=== PATIENT | male | born 2000 | race Caucasian/White ===

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

== ENCOUNTER 2021-04-30 22:39 | Emergency (ER) | payer MEDICAID ==
--- NOTE | 2021-04-30 23:35 | ED Physician Documentation ---
PD HPI UPPER EXT INJURY - Stated complaint Stated Complaint: R ELBOW PX - Chief complaint Chief Complaint: Trauma Ext - History obtained from History obtained from: Patient - History of Present Illness Location: Right, Elbow Type of injury: Fall (skateboarding and fell to right elbow, with pain on ROM, feels best with it bent at 90 degrees. No numbness in fingers.) Where injury occurred: Street Timing - onset: Today Timing - details: Abrupt onset, Still present Worsened by: Moving Associated symptoms: Swelling (of the elbow). No: Weakness, Numbness Similar symptoms before: Has not had sx before Review of Systems GI: denies: Abdominal Pain Skin: denies: Abrasion (s), Laceration (s) Musculoskeletal: denies: Neck pain Neurologic: denies: Headache PD PAST MEDICAL HISTORY - Past Medical History Past Medical History: No - Past Surgical History Past Surgical History: No - Present Medications Home Medications: Ambulatory Orders Medication Instructions Recorded Confirmed Ibuprofen [Motrin] 600 mg PO TID PRN #25 tab 05/01/21 - Allergies Allergies/Adverse Reactions: Allergies Allergy/AdvReac Type Severity Reaction Status Date / Time No Known Drug Allergies Allergy Verified 04/30/21 22:58 - Social History Does the pt smoke?: Yes Smoking Status: Current every day smoker Does the pt drink ETOH?: No Does the pt have substance abuse?: No - Immunizations Immunizations are current?: Yes - POLST Patient has POLST: No PD ED PE NORMAL - Vitals Vital signs reviewed: Yes - General General: Alert and oriented X 3, Well developed/nourished, Other (appears in discomfort with any ROM of the elbow. Not able to fully extend. Pain with supination/pronation. Mild effusion. ) - Derm Derm: Normal color, Warm and dry - Extremities Extremities: Other (see above) - Neuro Neuro: No motor deficit, No sensory deficit Results - Vitals Vitals: Vital Signs - 24 hr 04/30/21 05/01/21 22:58 00:20 Temperature 36.5 C 36.7 C Heart Rate 66 69 Respiratory 16 14 Rate Blood Pressure 128/77 122/68 O2 Saturation 99 99 Oxygen O2 Source Room air - Rads (name of study) right elbow Radiology: Prelim report reviewed (Radiology reports normal xray), EMP read contemporaneously (I think there is an unusual angle on one side of the radial neck suspicious for fracture. ), See rad report PD MEDICAL DECISION MAKING - ED course Complexity details: reviewed results (he has pain with ROM of the elbow, and mild effusion. Xray has suspicion for radial neck deformity to my reading, so will treat it as such. ), considered differential, d/w patient Departure - Departure Disposition: 01 Home, Self Care Clinical Impression: Fracture of radial neck, closed Qualifiers: Encounter type: initial encounter Fracture alignment: nondisplaced Laterality: right Qualified Code(s): S52.134A - Nondisplaced fracture of neck of right radius, initial encounter for closed fracture Condition: Stable Record reviewed to determine appropriate education?: Yes Instructions: ED Fx Elbow Follow-Up: Kennedy Carlson MD [Provider Admit Priv/Credential] - Prescriptions: Ibuprofen [Motrin] 600 mg PO TID PRN #25 tab PRN Reason: Pain Comments: I think your x-ray does show a nondisplaced fracture of the radial neck. It looks bent and not necessarily broken through in pieces. However it still needs time to heal which will likely be 3 to 4 weeks. Use the sling for limited range of motion and comfort for the next week and a half for sure until you follow-up with orthopedics. Call tomorrow for follow-up appointment for about 1-1/2 weeks from now. This will give time for ligaments and muscles to heal up better in the initial bone healing. At that point the orthopedist can better assess how much increased motion you can do with this. Use of anti-inflammatories such as ibuprofen 3 times a day with food for the next week or so. Add Tylenol every 4 hours if needed for pain. Ice or cool towels can help with swelling over the next couple of days. Use it periodically. Forms: Activity restrictions Discharge Date/Time: 05/01/21 00:24
[2021-04-30] MEDS ORDERED: ACETAMINOPHEN 325 MG TABLET PO STA (23:43)
[2021-04-30] MEDS ORDERED: IBUPROFEN 600 MG TABLET PO STA (23:43)
--- NOTE | 2021-05-01 00:10 | XRAY Report ---
PROCEDURE: Elbow 3 View RT INDICATIONS: long boarding injury/fell c/o pain w/ deformity TECHNIQUE: 4 views of the elbow were acquired. COMPARISON: None. FINDINGS: Bones: No fractures or dislocations. No suspicious bony lesions. Soft tissues: No posterior elbow joint effusion. No suspicious soft tissue calcifications. IMPRESSION: No acute osseous abnormality. Reviewed by: Orlando De León MD on 05/01/2021 12:09 AM PDT Approved by: Orlando De León MD on 05/01/2021 12:09 AM PDT Station ID: [id number]
[2021-05-01 00:25] VITALS: BP 122/68
== END 2021-05-01 00:24 | disposition home or self-care (01) ==
LOC: ED 22:39
DX: S52.91XA Unspecified fracture of right forearm, initial encounter for closed fracture (principal); V00.131A Fall from skateboard, initial encounter; Y93.51 Activity, roller skating (inline) and skateboarding; F17.200 Nicotine dependence, unspecified, uncomplicated
CPT/HCPCS: 73080; 99283; A9270

== ENCOUNTER 2021-07-25 08:00 | Outpatient (CLI) | payer MEDICAID | END 2021-07-25 23:59 | disposition home or self-care (01) | LOC: LAB.N 08:00 | PROVIDERS: ATTEND Family Medicine | DX: R07.0 Pain in throat (principal); Z20.822 Contact with and (suspected) exposure to COVID-19 ==